=== PATIENT | male | born 1985 | race Two or more races ===

== ENCOUNTER 2016-04-25 09:37 | Inpatient (IN) | payer MEDICAID ==
[~2016-04-25] VITALS: Ht 177.8 cm; Wt 79.2 kg
[2016-04-25] MEDS ORDERED: SODIUM CHLORIDE 0.9% 1,000 ML IV ONE (10:45)
[2016-04-25] MEDS ORDERED: KETOROLAC TROMETH 30 MG/ML 1ML VIAL IV ONE (10:45)
[2016-04-25] MEDS ORDERED: VANCOMYCIN 1GM/250ML D5W 250 ML IV ONE (10:45)
[2016-04-25] MEDS ORDERED: PIPERACILLIN-TAZOB 3.375GM 100 ML IV ONE (10:45)
[2016-04-25] MEDS ORDERED: TETANUS-DIPTH-ACEL PERTUSSIS 0.5ML SYRG IM ONE (11:00)
[2016-04-25 11:29] LABS: Basophils # (auto) 0 uL; Basophils % (auto) 0.7 % (0.0-2.0); Eosinophils # (auto) 0.1 uL; Eosinophils % (auto) 1.6 % (0.0-7.0); Hematocrit 45.5 % (41.0-53.0); Hemoglobin 14.4 g/dL (13.5-17.5); Lymphocytes # (auto) 1.6 uL; Lymphocytes % (auto) 24.5 % (10.0-50.0); Mean Corpuscular Hemoglobin 29.5 pg (28.0-32.0); Mean Corpuscular Hgb Conc. 31.6 g/dL (32.0-36.0); Mean Corpuscular Volume 93.1 fL (80.0-100.0); Mean Platelet Volume 7.5 fL (7.4-10.4); Monocytes # (auto) 0.4 uL; Monocytes % (auto) 5.9 % (0.0-12.0); Neutrophils # (auto) 4.5 uL; Neutrophils % (auto) 67.3 % (37.0-80.0); Platelet Count (auto) 426 10^3/uL (140-450); Red Cell Distribution Width 13.8 % (11.6-16.0); White Blood Cell 6.7 10^3/uL (4.4-10.8)
[2016-04-25 11:40] LABS: Albumin 3.6 g/dL (3.4-5.0); Bilirubin, Total 0.1 mg/dL (0.2-1.0); Potassium 4.4 mmol/L (3.5-5.1); Total Protein 7.4 g/dL (6.4-8.2)
[2016-04-25] MEDS: PIPERACILLIN-TAZOB 3.375GM 100 ML IV SCH ×2 (13:22→19:47)
[2016-04-25] MEDS ORDERED: VANCOMYCIN PER PHARMACY 0 MG IV SCH (13:30)
[2016-04-25] MEDS ORDERED: TEMAZEPAM 15 MG CAP PO PRN (13:30)
[2016-04-25] MEDS ORDERED: ONDANSETRON HCL 4 MG/2 ML VIAL IV PRN (13:30)
[2016-04-25] MEDS ORDERED: ACETAMINOPHEN 325 MG TAB PO PRN (13:30)
[2016-04-25] MEDS ORDERED: DOCUSATE SOD 100 MG CAP PO PRN (13:30)
[2016-04-25] MEDS: ZINC SULFATE 220 MG CAP PO SCH (14:57)
[2016-04-25] MEDS: ASCORBIC ACID 500 MG TAB PO SCH ×2 (14:57→21:38)
[2016-04-25] MEDS: MULTIPLE VITAMIN TAB PO SCH (14:57)
[2016-04-25] MEDS: SODIUM CHLOR 0.9% PF (SALINE LOCK) 10ML VIAL IV SCH ×2 (14:57→21:37)
[2016-04-25] MEDS ORDERED: cloNIDine HCL 0.1 MG TAB PO PRN (15:30)
[2016-04-25 16:36] LABS: Urine RBC None Seen /hpf (0 - 3)
[2016-04-25 17:15] LABS: Urine Bilirubin Negative (Negative); Urine Blood Negative /uL (Negative); Urine Color Yellow (Yellow); Urine Glucose Normal (Normal); Urine Ketone Negative (Negative); Urine Nitrite Negative (Negative); Urine Urobilinogen Normal (Negative); Urine pH 6.5 (5.0-8.0)
[2016-04-25 17:17] VITALS: BP 123/63
[2016-04-25 17:53] VITALS: BP 160/83
[2016-04-25] MEDS: HYDROcodone-ACET 5/325MG TAB PO PRN (18:46)
[2016-04-25 20:00] VITALS: BP 119/69
[2016-04-25 21:28] VITALS: BP 119/69
[2016-04-25] MEDS: MORPHINE SULF INJ 2 MG/ML SYRINGE 1ML IV PRN (21:44)
[2016-04-25] MEDS: VANCOMYCIN 1,250 MG in D5W 5% 250 ML IV SCH (22:56)
[2016-04-26] MEDS: PIPERACILLIN-TAZOB 3.375GM 100 ML IV SCH ×4 (01:35→20:27)
[2016-04-26] MEDS: HYDROcodone-ACET 5/325MG TAB PO PRN ×2 (04:44→11:00)
[2016-04-26 05:03] VITALS: BP 109/74
[2016-04-26] MEDS: SODIUM CHLOR 0.9% PF (SALINE LOCK) 10ML VIAL IV SCH ×3 (05:35→22:53)
[2016-04-26 06:50] LABS: Basophils # (auto) 0.1 uL; Basophils % (auto) 0.8 % (0.0-2.0); Eosinophils # (auto) 0.2 uL; Eosinophils % (auto) 3.6 % (0.0-7.0); Hematocrit 43.5 % (41.0-53.0); Hemoglobin 13.6 g/dL (13.5-17.5); Lymphocytes % (auto) 31.7 % (10.0-50.0); Mean Corpuscular Hemoglobin 29.4 pg (28.0-32.0); Mean Corpuscular Hgb Conc. 31.3 g/dL (32.0-36.0); Mean Corpuscular Volume 93.9 fL (80.0-100.0); Mean Platelet Volume 7.6 fL (7.4-10.4); Monocytes # (auto) 0.5 uL; Monocytes % (auto) 8.7 % (0.0-12.0); Neutrophils # (auto) 3.4 uL; Neutrophils % (auto) 55.2 % (37.0-80.0); Platelet Count (auto) 372 10^3/uL (140-450); Red Cell Distribution Width 14.1 % (11.6-16.0); White Blood Cell 6.2 10^3/uL (4.4-10.8)
[2016-04-26 08:03] LABS: Albumin 3.1 g/dL (3.4-5.0); BUN/Creatinine Ratio 21.3; Bilirubin, Total 0.2 mg/dL (0.2-1.0); Calcium 8.3 mg/dL (8.5-10.1); Potassium 4.3 mmol/L (3.5-5.1); Total Protein 6.5 g/dL (6.4-8.2)
[2016-04-26] MEDS: ZINC SULFATE 220 MG CAP PO SCH (08:11)
[2016-04-26] MEDS: MULTIPLE VITAMIN TAB PO SCH (08:11)
[2016-04-26] MEDS: ASCORBIC ACID 500 MG TAB PO SCH ×2 (08:11→22:54)
[2016-04-26 08:30] VITALS: BP 123/68
[2016-04-26] MEDS: VANCOMYCIN 1,250 MG in D5W 5% 250 ML IV SCH ×2 (11:00→23:57)
[2016-04-26 13:00] VITALS: BP 132/62
[2016-04-26] MEDS: MORPHINE SULF INJ 2 MG/ML SYRINGE 1ML IV PRN ×2 (15:10→20:15)
[2016-04-26 16:47] VITALS: BP 112/66
[2016-04-26 20:00] VITALS: BP 116/75
[2016-04-26 21:53] VITALS: BP 116/75
[2016-04-27] MEDS: MORPHINE SULF INJ 2 MG/ML SYRINGE 1ML IV PRN ×3 (00:51→20:16)
[2016-04-27] MEDS: PIPERACILLIN-TAZOB 3.375GM 100 ML IV SCH ×2 (02:45→08:04)
[2016-04-27 04:51] VITALS: BP 114/69
[2016-04-27] MEDS: SODIUM CHLOR 0.9% PF (SALINE LOCK) 10ML VIAL IV SCH ×3 (06:27→22:04)
[2016-04-27] MEDS: HYDROcodone-ACET 5/325MG TAB PO PRN ×2 (08:12→15:09)
[2016-04-27] MEDS: ZINC SULFATE 220 MG CAP PO SCH (08:12)
[2016-04-27] MEDS: ASCORBIC ACID 500 MG TAB PO SCH ×2 (08:12→22:04)
[2016-04-27] MEDS: MULTIPLE VITAMIN TAB PO SCH (08:12)
[2016-04-27 08:52] VITALS: BP 109/73
[2016-04-27] MEDS: VANCOMYCIN 1,250 MG in D5W 5% 250 ML IV SCH (11:17)
[2016-04-27] MEDS ORDERED: LEVOFLOXACIN 500MG 100 ML IV ONE (11:45)
[2016-04-27 13:00] VITALS: BP 106/65
[2016-04-27] MEDS: CLINDAMYCIN 600MG IV 50 ML IV SCH ×2 (14:38→22:04)
[2016-04-27 17:00] VITALS: BP 112/71
[2016-04-27 20:00] VITALS: BP 132/73
[2016-04-27 21:45] VITALS: BP 132/73
[2016-04-28 05:09] VITALS: BP 119/76
[2016-04-28] MEDS: HYDROcodone-ACET 5/325MG TAB PO PRN (05:20)
[2016-04-28] MEDS: CLINDAMYCIN 600MG IV 50 ML IV SCH (05:21)
[2016-04-28] MEDS: SODIUM CHLOR 0.9% PF (SALINE LOCK) 10ML VIAL IV SCH (05:28)
[2016-04-28 06:34] LABS: Basophils # (auto) 0.1 uL; Eosinophils # (auto) 0.3 uL; Eosinophils % (auto) 4.7 % (0.0-7.0); Hematocrit 42.3 % (41.0-53.0); Hemoglobin 13.3 g/dL (13.5-17.5); Lymphocytes # (auto) 2.2 uL; Mean Corpuscular Hemoglobin 29.1 pg (28.0-32.0); Mean Corpuscular Hgb Conc. 31.5 g/dL (32.0-36.0); Mean Corpuscular Volume 92.2 fL (80.0-100.0); Mean Platelet Volume 7.3 fL (7.4-10.4); Monocytes # (auto) 0.6 uL; Monocytes % (auto) 9.6 % (0.0-12.0); Neutrophils # (auto) 2.8 uL; Neutrophils % (auto) 47.7 % (37.0-80.0); Platelet Count (auto) 344 10^3/uL (140-450); Red Cell Distribution Width 13.9 % (11.6-16.0); White Blood Cell 5.9 10^3/uL (4.4-10.8)
[2016-04-28 06:49] LABS: Albumin 3.3 g/dL (3.4-5.0); BUN/Creatinine Ratio 21.6; Bilirubin, Total 0.2 mg/dL (0.2-1.0); Calcium 8.4 mg/dL (8.5-10.1); Potassium 4.2 mmol/L (3.5-5.1); Total Protein 6.6 g/dL (6.4-8.2)
[2016-04-28 09:00] VITALS: BP 114/63
[2016-04-28] MEDS ORDERED: LEVOFLOXACIN 500MG 100 ML IV SCH (10:00)
[2016-04-28] MEDS: ZINC SULFATE 220 MG CAP PO SCH (10:02)
[2016-04-28] MEDS: ASCORBIC ACID 500 MG TAB PO SCH (10:02)
[2016-04-28] MEDS: MULTIPLE VITAMIN TAB PO SCH (10:02)
== END 2016-04-28 11:10 | disposition home or self-care (01) | DRG 383 ==
LOC: ER 09:38 → OVERFLOW 09:39 → EAST 17:49
PROVIDERS: ADMIT Internal Medicine; ATTEND Internal Medicine
DX: L03.115 Cellulitis of right lower limb (principal); I10 Essential (primary) hypertension; B95.8 Unspecified staphylococcus as the cause of diseases classified elsewhere; J45.909 Unspecified asthma, uncomplicated; F17.210 Nicotine dependence, cigarettes, uncomplicated; W54.0XXA Bitten by dog, initial encounter; Z83.3 Family history of diabetes mellitus; Z23 Encounter for immunization
CPT/HCPCS: 36415; 80053; 80202; 81001; 85025; 87040; 87077; 87186; 87205; 90471; 90715; 93971; 96365; 96366; 96375; G0434; J1885; J1956; J2543; J3490; J7060

== ENCOUNTER 2016-05-24 03:00 | Emergency (ER) | payer MEDICAID ==
[~2016-05-24] VITALS: Ht 177.8 cm; Wt 77.1 kg
[2016-05-24 05:00] LABS: Basophils # (auto) 0 uL; Basophils % (auto) 0.4 % (0.0-2.0); Eosinophils # (auto) 0.2 uL; Hematocrit 42.9 % (41.0-53.0); Hemoglobin 14.2 g/dL (13.5-17.5); Lymphocytes # (auto) 2.2 uL; Lymphocytes % (auto) 26.2 % (10.0-50.0); Mean Corpuscular Hemoglobin 30.4 pg (28.0-32.0); Mean Corpuscular Hgb Conc. 33.1 g/dL (32.0-36.0); Mean Corpuscular Volume 91.8 fL (80.0-100.0); Mean Platelet Volume 7.8 fL (7.4-10.4); Monocytes # (auto) 0.6 uL; Monocytes % (auto) 7.3 % (0.0-12.0); Neutrophils # (auto) 5.4 uL; Neutrophils % (auto) 64.1 % (37.0-80.0); Platelet Count (auto) 306 10^3/uL (140-450); Red Cell Distribution Width 13.3 % (11.6-16.0); White Blood Cell 8.4 10^3/uL (4.4-10.8)
[2016-05-24 05:22] LABS: Urine Bilirubin Negative (Negative); Urine Blood Negative /uL (Negative); Urine Color Yellow (Yellow); Urine Glucose Normal (Normal); Urine Ketone Negative (Negative); Urine Mucus FEW (None Seen); Urine Nitrite Negative (Negative); Urine RBC 1 /hpf (0 - 3); Urine Sperm PRESENT /hpf (None Seen); Urine Urobilinogen Normal (Negative); Urine pH 5.5 (5.0-8.0)
[2016-05-24 05:27] LABS: Albumin 3.5 g/dL (3.4-5.0); BUN/Creatinine Ratio 14.8; Bilirubin, Total 0.3 mg/dL (0.2-1.0); Calcium 8.4 mg/dL (8.5-10.1); Potassium 3.6 mmol/L (3.5-5.1)
[2016-05-24 12:10] VITALS: BP 119/77
[2016-05-24] MEDS ORDERED: NEOMYCIN-BACITRACIN-POLYM UNITDOSE PKG TOP OINT TOP ONE ×2 (12:12→13:00)
[2016-05-24] MEDS ORDERED: METOCLOPRAMIDE HCL 5MG/ml INJ 2ml VIAL IV ONE (12:45)
[2016-05-24] MEDS ORDERED: KETOROLAC TROMETH 30 MG/ML 1ML VIAL IV ONE (12:45)
== END 2016-05-24 14:00 | disposition home or self-care (01) ==
LOC: ER 03:02
DX: S22.31XA Fracture of one rib, right side, initial encounter for closed fracture (principal); T81.89XA Other complications of procedures, not elsewhere classified, initial encounter; M54.9 Dorsalgia, unspecified; V19.9XXA Pedal cyclist (driver) (passenger) injured in unspecified traffic accident, initial encounter; Y93.9 Activity, unspecified; Y99.8 Other external cause status; Y92.89 Other specified places as the place of occurrence of the external cause; F12.10 Cannabis abuse, uncomplicated; F15.10 Other stimulant abuse, uncomplicated; F17.210 Nicotine dependence, cigarettes, uncomplicated
CPT/HCPCS: 36415; 71020; 71101; 80053; 81001; 85025; 96374; 96375; 99285; G0434; J1885; J2765

== ENCOUNTER 2018-01-05 03:57 | Emergency (ER) | payer MEDICAID ==
[~2018-01-05] VITALS: Ht 177.8 cm; Wt 90.7 kg
[2018-01-05] MEDS ORDERED: LIDOCAINE W/ EPINEPHRINE 2% INJ 20ML VIAL IJ ONE (07:30)
[2018-01-05] MEDS ORDERED: BACITRACIN TOP OINT 1 UD PKG TOP ONE (07:30)
[2018-01-05 08:07] VITALS: BP 126/82
== END 2018-01-05 08:07 | disposition home or self-care (01) ==
LOC: ER 03:57
DX: S01.111A Laceration without foreign body of right eyelid and periocular area, initial encounter (principal); S09.90XA Unspecified injury of head, initial encounter; F17.210 Nicotine dependence, cigarettes, uncomplicated; F12.90 Cannabis use, unspecified, uncomplicated; Z88.8 Allergy status to other drugs, medicaments and biological substances; W22.8XXA Striking against or struck by other objects, initial encounter; Y93.89 Activity, other specified; Y99.8 Other external cause status; Y92.89 Other specified places as the place of occurrence of the external cause
CPT/HCPCS: 12051; 70450

== ENCOUNTER 2018-01-12 16:37 | Emergency (ER) | payer MEDICAID ==
[~2018-01-12] VITALS: Ht 177.8 cm; Wt 90.7 kg
[2018-01-12 16:43] VITALS: BP 124/82
== END 2018-01-12 17:38 | disposition home or self-care (01) ==
LOC: ER 16:43
DX: S01.111D Laceration without foreign body of right eyelid and periocular area, subsequent encounter (principal); F17.210 Nicotine dependence, cigarettes, uncomplicated; F15.90 Other stimulant use, unspecified, uncomplicated; Z48.02 Encounter for removal of sutures; X58.XXXD Exposure to other specified factors, subsequent encounter

== ENCOUNTER 2018-04-20 08:57 | Emergency (ER) | payer MEDICAID ==
[~2018-04-20] VITALS: Ht 177.8 cm; Wt 95.3 kg
[2018-04-20 09:30] VITALS: BP 124/87
[2018-04-20] MEDS ORDERED: IBUPROFEN 800 MG TAB PO ONE (09:45)
== END 2018-04-20 09:59 | disposition home or self-care (01) ==
LOC: ER 08:57
DX: S93.401A Sprain of unspecified ligament of right ankle, initial encounter (principal); S50.812A Abrasion of left forearm, initial encounter; F17.210 Nicotine dependence, cigarettes, uncomplicated; F12.10 Cannabis abuse, uncomplicated; W18.39XA Other fall on same level, initial encounter; Y93.01 Activity, walking, marching and hiking; Y92.89 Other specified places as the place of occurrence of the external cause; Y99.8 Other external cause status
CPT/HCPCS: 73610

== ENCOUNTER 2019-02-24 18:56 | Emergency (ER) | payer MEDICAID ==
[~2019-02-24] VITALS: Ht 177.8 cm; Wt 79.4 kg
[2019-02-24] MEDS ORDERED: ACETAMINOPHEN 500 MG TAB PO ONE ×2 (19:45)
[2019-02-24 19:47] VITALS: BP 113/73
[2019-02-24] MEDS ORDERED: IBUPROFEN 800 MG TAB PO ONE (20:45)
== END 2019-02-24 22:53 | disposition home or self-care (01) ==
LOC: ER 18:57
DX: S52.202A Unspecified fracture of shaft of left ulna, initial encounter for closed fracture (principal); L03.114 Cellulitis of left upper limb; F17.210 Nicotine dependence, cigarettes, uncomplicated; Z88.8 Allergy status to other drugs, medicaments and biological substances; Y00.XXXA Assault by blunt object, initial encounter; Y93.89 Activity, other specified; Y92.89 Other specified places as the place of occurrence of the external cause; Y99.8 Other external cause status
CPT/HCPCS: 29125; 73080; 73090; 73110; 73200

== ENCOUNTER 2019-03-05 13:09 | Emergency (ER) | payer MEDICAID ==
[~2019-03-05] VITALS: Ht 177.8 cm; Wt 40.4 kg
[2019-03-05 13:19] VITALS: BP 126/81
[2019-03-05] MEDS ORDERED: KETOROLAC TROMETH 60MG/2ML VIAL IM ONE (14:30)
== END 2019-03-05 14:54 | disposition home or self-care (01) ==
LOC: ER 13:09
DX: S52.292A Other fracture of shaft of left ulna, initial encounter for closed fracture (principal); F17.210 Nicotine dependence, cigarettes, uncomplicated; Z88.6 Allergy status to analgesic agent; X58.XXXA Exposure to other specified factors, initial encounter; Y93.89 Activity, other specified; Y92.89 Other specified places as the place of occurrence of the external cause; Y99.8 Other external cause status
CPT/HCPCS: 29125; 96372; 99283; J1885

== ENCOUNTER 2019-03-14 19:46 | Emergency (ER) | payer MEDICAID ==
[~2019-03-14] VITALS: Ht 177.8 cm; Wt 79.4 kg
[2019-03-15] MEDS ORDERED: cefTRIAXone SOD 1,000 MG VL IM ONE (01:15)
[2019-03-15] MEDS ORDERED: DexAMETHasone SOD PHOS 10MG/1ML VIAL INJ IM ONE (01:15)
[2019-03-15 01:18] VITALS: BP 111/81
[2019-03-15 01:18] LABS: Basophils # (auto) 0 uL; Basophils % (auto) 0.7 % (0.0-2.0); Eosinophils # (auto) 0 uL; Eosinophils % (auto) 0.4 % (0.0-7.0); Hematocrit 44.1 % (41.0-53.0); Hemoglobin 15.1 g/dL (13.5-17.5); Lymphocytes # (auto) 1.3 uL; Mean Corpuscular Hemoglobin 31.7 pg (28.0-32.0); Mean Corpuscular Hgb Conc. 34.3 g/dL (32.0-36.0); Mean Corpuscular Volume 92.6 fL (80.0-100.0); Monocytes # (auto) 0.6 uL; Monocytes % (auto) 9.7 % (0.0-12.0); Neutrophils # (auto) 4.1 uL; Neutrophils % (auto) 68.2 % (37.0-80.0); Nucleated Red Blood Cells % 0.1 %; Platelet Count (auto) 204 10^3/uL (140-450); Red Blood Cells 4.77 10^6/uL (4.5-5.90); Red Cell Distribution Width 14.3 % (11.8-14.3); White Blood Cell 5.9 10^3/uL (4.4-10.8)
[2019-03-15 01:35] LABS: Albumin 3.7 g/dL (3.4-5.0); BUN/Creatinine Ratio 14.1; Calcium 8.6 mg/dL (8.5-10.1); Potassium 4.1 mmol/L (3.5-5.1)
[2019-03-15 01:38] LABS: Bilirubin, Total 0.2 mg/dL (0.2-1.0); Total Protein 7.5 g/dL (6.4-8.2)
== END 2019-03-15 02:18 | disposition home or self-care (01) ==
LOC: ER 19:52
DX: J16.8 Pneumonia due to other specified infectious organisms (principal); F17.210 Nicotine dependence, cigarettes, uncomplicated
CPT/HCPCS: 36415; 71045; 80053; 85025; 96372; 99284; J0696; J1100

== ENCOUNTER 2019-03-25 18:27 | Emergency (ER) | payer MEDICAID ==
[~2019-03-25] VITALS: Ht 177.8 cm; Wt 81.6 kg
[2019-03-25 19:48] LABS: Hematocrit 46.2 % (41.0-53.0); Hemoglobin 15.6 g/dL (13.5-17.5); Mean Corpuscular Hemoglobin 31.2 pg (28.0-32.0); Mean Corpuscular Hgb Conc. 33.7 g/dL (32.0-36.0); Mean Corpuscular Volume 92.7 fL (80.0-100.0); Platelet Count (auto) 299 10^3/uL (140-450); Red Blood Cells 4.99 10^6/uL (4.5-5.90); Red Cell Distribution Width 14.3 % (11.8-14.3); White Blood Cell 7.8 10^3/uL (4.4-10.8)
[2019-03-25 19:51] LABS: Band Neutrophils % (manual) 0; Basophils % (manual) 0 (0.0-2.0); Blast Cells 0; Myelocytes % 0; Promyelocytes % 0; Reactive Lymphocytes 0
[2019-03-25 20:07] LABS: Albumin 3.9 g/dL (3.4-5.0); Anion Gap 7 (5-15); Blood Urea Nitrogen 16 mg/dL (7-18); Calcium 8.9 mg/dL (8.5-10.1); Carbon Dioxide 25 mmol/L (21-32); Chloride 110 mmol/L (98-107); Glucose 85 mg/dL (74-106); Potassium 3.6 mmol/L (3.5-5.1); Sodium 142 mmol/L (136-145)
[2019-03-25 20:08] LABS: Eosinophils % (manual) 3 (0-7); Lymphocytes % (manual) 49 (10.0-50.0); Metamyelocytes % 2; Monocytes % (manual) 6 (0-12)
[2019-03-25 20:19] LABS: Alanine Aminotransferase 23 U/L (16-61); Alkaline Phosphatase 102 U/L (45-117); Aspartate Aminotransferase 14 U/L (15-37); BUN/Creatinine Ratio 18.6; Bilirubin, Total 0.2 mg/dL (0.2-1.0); GFR African American 131 mL/min; GFR Non-African American 108 mL/min; Total Protein 7.9 g/dL (6.4-8.2)
[2019-03-25 22:09] VITALS: BP 126/84
== END 2019-03-25 22:19 | disposition home or self-care (01) ==
LOC: ER 18:27
DX: J40 Bronchitis, not specified as acute or chronic (principal); Z88.8 Allergy status to other drugs, medicaments and biological substances
CPT/HCPCS: 36415; 71046; 80053; 84484; 85007; 85027; 93005

== ENCOUNTER 2019-06-03 16:54 | Emergency (ER) | payer MEDICAID ==
[~2019-06-03] VITALS: Ht 177.8 cm; Wt 78.0 kg
[2019-06-03] MEDS ORDERED: cefTRIAXone SODIUM 250 MG VL IM ONE (17:30)
[2019-06-03] MEDS ORDERED: AZITHROMYCIN 250 MG TAB PO ONE (17:30)
[2019-06-03 17:53] LABS: Urine Bacteria NONE SEEN /hpf (None Seen); Urine Blood Negative /uL (Negative); Urine Budding Yeast MODERATE /hpf (None Seen); Urine Specific Gravity 1.013 (1.001-1.035); Urine WBC 129 /hpf (0 - 3)
[2019-06-03 17:57] LABS: Alcohol, Urine < 3.0 mg/dL (0-5); Amphetamine Screen, Urine POSITIVE (NEGATIVE); Barbiturate Scree,Urine NEGATIVE (NEGATIVE); Benzodiazephine Screen, Urine NEGATIVE (NEGATIVE); Cannabinoid Screen, Urine POSITIVE (NEGATIVE); Cocaine Screen, Urine NEGATIVE (NEGATIVE); Opiate Scree,Urine NEGATIVE (NEGATIVE); Phencyclidine Screen, Urine NEGATIVE (NEGATIVE)
[2019-06-03 18:18] VITALS: BP 147/83
== END 2019-06-03 18:57 | disposition home or self-care (01) ==
LOC: ER 16:54
DX: Z20.2 Contact with and (suspected) exposure to infections with a predominantly sexual mode of transmission (principal); R36.9 Urethral discharge, unspecified; Z88.8 Allergy status to other drugs, medicaments and biological substances
CPT/HCPCS: 80307; 81001; 96372; 99283; J0696

== ENCOUNTER 2020-01-10 14:26 | Emergency (ER) | payer MEDICAID ==
[~2020-01-10] VITALS: Ht 175.3 cm; Wt 74.8 kg
[2020-01-10 15:08] VITALS: BP 123/92
== END 2020-01-10 16:54 | disposition home or self-care (01) ==
LOC: ER 14:26
DX: S61.011A Laceration without foreign body of right thumb without damage to nail, initial encounter (principal); W26.0XXA Contact with knife, initial encounter; Y93.89 Activity, other specified; Y92.89 Other specified places as the place of occurrence of the external cause; Y99.8 Other external cause status
CPT/HCPCS: 12001; 73140; 99283; J2001

== ENCOUNTER 2020-01-20 17:01 | Emergency (ER) | payer MEDICAID ==
[~2020-01-20] VITALS: Ht 175.3 cm; Wt 74.8 kg
[2020-01-20 19:01] VITALS: BP 141/95
[2020-01-20] MEDS ORDERED: cefTRIAXone SOD 1,000 MG VL IM ONE (19:30)
[2020-01-20] MEDS ORDERED: KETOROLAC TROMETH 60MG/2ML VIAL IM ONE (19:30)
== END 2020-01-20 20:14 | disposition home or self-care (01) ==
LOC: ER 17:01
DX: S61.411A Laceration without foreign body of right hand, initial encounter (principal); M79.89 Other specified soft tissue disorders; T81.30XA Disruption of wound, unspecified, initial encounter; F17.210 Nicotine dependence, cigarettes, uncomplicated; W45.8XXA Other foreign body or object entering through skin, initial encounter; Y93.89 Activity, other specified; Y92.89 Other specified places as the place of occurrence of the external cause; Y99.8 Other external cause status
CPT/HCPCS: 96372; 99284; J0696; J1885

== ENCOUNTER 2020-03-25 10:28 | Emergency (ER) | payer MEDICAID ==
[~2020-03-25] VITALS: Ht 175.3 cm; Wt 77.1 kg
[2020-03-25 10:40] VITALS: BP 132/85
[2020-03-25] MEDS ORDERED: LIDOCAINE 1% HCL (LOCAL ANESTH.) INJ 20ML MDV IJ ONE (11:15)
[2020-03-25] MEDS ORDERED: TETANUS-DIPTH-ACEL PERTUSSIS 0.5ML SYR Tdap IM ONE (11:30)
[2020-03-25] MEDS ORDERED: IBUPROFEN 800 MG TAB PO ONE (11:30)
== END 2020-03-25 11:51 | disposition home or self-care (01) ==
LOC: ER 10:28
DX: S01.81XA Laceration without foreign body of other part of head, initial encounter (principal); S16.1XXA Strain of muscle, fascia and tendon at neck level, initial encounter; S06.9X9A Unspecified intracranial injury with loss of consciousness of unspecified duration, initial encounter; F17.210 Nicotine dependence, cigarettes, uncomplicated; W18.39XA Other fall on same level, initial encounter; Y93.89 Activity, other specified; Y92.89 Other specified places as the place of occurrence of the external cause; Y99.8 Other external cause status
CPT/HCPCS: 12013; 70450; 70486; 72125; 73130; 90471; 90715; 99285; J2001

== ENCOUNTER 2020-05-07 12:32 | Emergency (ER) | payer MEDICAID ==
[~2020-05-07] VITALS: Ht 175.3 cm; Wt 77.1 kg
[2020-05-07 12:36] VITALS: BP 125/78
== END 2020-05-07 14:09 | disposition home or self-care (01) ==
LOC: ER 12:32
DX: S61.233A Puncture wound without foreign body of left middle finger without damage to nail, initial encounter (principal); F17.210 Nicotine dependence, cigarettes, uncomplicated; F12.10 Cannabis abuse, uncomplicated; F15.10 Other stimulant abuse, uncomplicated; X58.XXXA Exposure to other specified factors, initial encounter; Y93.89 Activity, other specified; Y92.89 Other specified places as the place of occurrence of the external cause; Y99.8 Other external cause status

== ENCOUNTER 2020-05-16 09:52 | Emergency (ER) | payer MEDICAID ==
[~2020-05-16] VITALS: Ht 175.3 cm; Wt 77.1 kg
[2020-05-16 10:15] VITALS: BP 125/87
== END 2020-05-16 10:46 | disposition home or self-care (01) ==
LOC: ER 09:52
DX: R23.4 Changes in skin texture (principal); F17.210 Nicotine dependence, cigarettes, uncomplicated; F12.10 Cannabis abuse, uncomplicated; F15.10 Other stimulant abuse, uncomplicated; Z76.0 Encounter for issue of repeat prescription

== ENCOUNTER 2020-08-27 19:03 | Emergency (ER) | payer MEDICAID ==
[~2020-08-27] VITALS: Ht 175.3 cm; Wt 81.6 kg
[2020-08-27] MEDS ORDERED: LIDOCAINE 2% (LOCAL ANESTH.) PF 5ml SDV ONE (20:16)
[2020-08-27] MEDS ORDERED: LIDOCAINE HCL 2 % INJ 2ML MPF IJ ONE (20:30)
[2020-08-27] MEDS ORDERED: NEOMYCIN-BACITRACIN-POLYM UNITDOSE PKG TOP OINT TOP ONE (21:00)
[2020-08-27] MEDS ORDERED: BACITRACIN-POLYMYXIN B TOPICAL OINT UD TOP ONE (21:00)
[2020-08-27 21:50] VITALS: BP 128/80
== END 2020-08-27 21:53 | disposition home or self-care (01) ==
LOC: ER 19:03
DX: S61.210A Laceration without foreign body of right index finger without damage to nail, initial encounter (principal); F17.210 Nicotine dependence, cigarettes, uncomplicated; Z88.8 Allergy status to other drugs, medicaments and biological substances; W26.8XXA Contact with other sharp object(s), not elsewhere classified, initial encounter; Y93.89 Activity, other specified; Y92.89 Other specified places as the place of occurrence of the external cause; Y99.8 Other external cause status
CPT/HCPCS: 12001; 73130; 99283; J2001

== ENCOUNTER 2020-09-01 15:14 | Emergency (ER) | payer MEDICAID ==
[~2020-09-01] VITALS: Ht 175.3 cm; Wt 81.6 kg
[2020-09-01 17:33] VITALS: BP 141/92
== END 2020-09-01 18:07 | disposition home or self-care (01) ==
LOC: ER 15:14
DX: S61.210D Laceration without foreign body of right index finger without damage to nail, subsequent encounter (principal); F17.210 Nicotine dependence, cigarettes, uncomplicated; Z88.8 Allergy status to other drugs, medicaments and biological substances; X58.XXXD Exposure to other specified factors, subsequent encounter

== ENCOUNTER 2021-01-15 20:11 | Emergency (ER) | payer MEDICAID ==
[~2021-01-15] VITALS: Ht 175.3 cm; Wt 86.2 kg
[2021-01-15 21:00] VITALS: BP 124/82
[2021-01-15] MEDS ORDERED: TETANUS-DIPTH-ACEL PERTUSSIS 0.5ML SYR Tdap IM ONE (21:30)
[2021-01-15] MEDS ORDERED: AMOXICILLIN/CLAVUL 875 MG TAB PO ONE (22:15)
== END 2021-01-15 22:22 | disposition home or self-care (01) ==
LOC: ER 20:11
DX: S71.131A Puncture wound without foreign body, right thigh, initial encounter (principal); S71.151A Open bite, right thigh, initial encounter; F17.210 Nicotine dependence, cigarettes, uncomplicated; Z59.00 Homelessness unspecified; Z88.8 Allergy status to other drugs, medicaments and biological substances; W54.0XXA Bitten by dog, initial encounter; Y93.89 Activity, other specified; Y92.89 Other specified places as the place of occurrence of the external cause; Y99.8 Other external cause status
CPT/HCPCS: 90471; 90715

== ENCOUNTER 2021-02-06 16:57 | Emergency (ER) | payer MEDICAID ==
[~2021-02-06] VITALS: Ht 175.3 cm; Wt 79.4 kg
[2021-02-06] MEDS ORDERED: ASPirin 81 mg TAB PO ONE (17:00)
[2021-02-06 18:34] LABS: Basophils # (auto) 0 10 ^3/uL (0-0.2); Basophils % (auto) 0.5 % (0.0-2.0); Eosinophils # (auto) 0.1 10 ^3/uL (0-0.8); Eosinophils % (auto) 1.2 % (0.0-7.0); Hematocrit 44.7 % (41.0-53.0); Hemoglobin 15.1 g/dL (13.5-17.5); Lymphocytes # (auto) 2.2 10 ^3/uL (0.4-5.4); Lymphocytes % (auto) 28.4 % (10.0-50.0); Mean Corpuscular Hemoglobin 30.4 pg (28.0-32.0); Mean Corpuscular Hgb Conc. 33.8 g/dL (32.0-36.0); Monocytes # (auto) 0.6 10 ^3/uL (0-1.3); Monocytes % (auto) 7.7 % (0.0-12.0); Neutrophils # (auto) 4.8 10 ^3/uL (1.6-8.6); Neutrophils % (auto) 62.2 % (37.0-80.0); Nucleated Red Blood Cells % 0.1 %; Red Blood Cells 4.97 10^6/uL (4.5-5.90); Red Cell Distribution Width 14.1 % (11.8-14.3); White Blood Cell 7.6 10^3/uL (4.4-10.8)
[2021-02-06 18:52] LABS: Albumin 3.5 g/dL (3.4-5.0); Calcium 8.5 mg/dL (8.5-10.1); Potassium 4.1 mmol/L (3.5-5.1)
[2021-02-06 18:56] LABS: BUN/Creatinine Ratio 20.4; Bilirubin, Total 0.1 mg/dL (0.2-1.0); Total Protein 7.4 g/dL (6.4-8.2)
[2021-02-06 19:45] VITALS: BP 123/80
== END 2021-02-06 20:15 | disposition home or self-care (01) ==
LOC: ER 16:57
DX: J18.9 Pneumonia, unspecified organism (principal); R07.89 Other chest pain; F17.210 Nicotine dependence, cigarettes, uncomplicated; Z88.8 Allergy status to other drugs, medicaments and biological substances; Z59.00 Homelessness unspecified
CPT/HCPCS: 36415; 71045; 80053; 84443; 84484; 85025; 93005

== ENCOUNTER → 2021-09-29 22:03 | Emergency (ER) | payer MEDICAID ==
[~2021-09-29 22:03] MED LIST: CLIN-203 PO; PERCOT PO
== END | disposition left against medical advice (07) ==
LOC: ER 22:03
DX: M79.671 Pain in right foot (principal); Z53.21 Procedure and treatment not carried out due to patient leaving prior to being seen by health care provider

== ENCOUNTER 2021-10-04 20:26 | Emergency (ER) | payer MEDICAID ==
[~2021-10-04] VITALS: Ht 177.8 cm; Wt 82.0 kg
[2021-10-04 20:40] VITALS: BP 117/68
[2021-10-05] MEDS ORDERED: PERCOT PO (01:20)
[2021-10-05] MEDS ORDERED: CLIN-203 PO (01:20)
== END 2021-10-05 02:36 | disposition home or self-care (01) ==
LOC: EDBD 20:26 → ER 20:26
DX: L03.114 Cellulitis of left upper limb (principal); J45.909 Unspecified asthma, uncomplicated; F17.210 Nicotine dependence, cigarettes, uncomplicated; Z88.8 Allergy status to other drugs, medicaments and biological substances
CPT/HCPCS: 73080

== ENCOUNTER 2024-04-25 21:06 | Emergency (ER) | payer MEDICAID ==
[~2024-04-25] VITALS: Ht 172.7 cm; Wt 77.1 kg
--- NOTE | 2024-04-25 22:01 | ED.PDOC ---
History of Present Illness HPI Comments 39 y/o M is BIBA for c/o blood in his urine and concerns of rectal bleeding today. Patient is a poor historian and endorses on noticing blood emanating from his rectum and urine earlier today. He admits to recent alcohol intake, yesterday, and methamphetamine use, today, and comments on "something else" bein g his "whisky" he drank then. He denies having any abdominal pain, nausea, vomiting, weakness, or other associated symptoms or modifiers at this time. Chief Complaint: GI Bleed Time Seen by MD: 21:30 Primary Care Provider: LISANDRA Reviewed Notes: Nurses Notes, Medications, Allergies Allergies: Coded Allergies: Tramadol (Verified Adverse Reaction, Unknown, 08/27/20) PSYCHOSIS Home Meds Active Scripts Oxycodone W/ Acetaminophen (Percocet 5/325MG) 1 Tab Tb, 1 TAB PO BID for 7 Days, #14 TAB Prov:KRISTOFER FLORES MD 10/05/21 Clindamycin HCl (Clindamycin Hydrochloride) 300 Mg Cap, 300 MG PO BID for 7 Days, #14 CAP Prov:KRISTOFER FLORES MD 10/05/21 Information Source: Patient Mode of Arrival: EMS Severity: Moderate Timing: Hours Duration: Since onset Prehospital treatment: None Past Medical History PAST MEDICAL HISTORY: Asthma Surgical History: Denies all surgeries Family History Family History: Reviewed,noncontributory to illness Social History Smoker: Cigarettes, Less Than 1 Pack/Day Alcohol: Occasionally Drugs: Marijuana, Methamphetamine Lives In: Homeless Constitutional: denies: chills, diaphoresis, fatigue, fever, malaise, sweats, weakness, others EENTM: denies: blurred vision, double vision, ear bleeding, ear discharge, ear drainage, ear pain, ear ringing, eye pain, eye redness, hearing loss, mouth pain, mouth swelling, nasal discharge, nose bleeding, nose congestion, nose pain , photophobia, tearing, throat pain, throat swelling, voice changes, others Respiratory: denies: cough, hemoptysis, orthopnea, SOB at rest, shortness of breath, SOB with excertion, stridor, wheezing, others Cardiovascular: denies: chest pain, dizzy spells, diaphoresis, Dyspnea on exertion, edema, irregular heart beat, left arm pain, lightheadedness, palpitations, PND, syncope, others Gastrointestinal: reports: rectal bleeding; denies: abdomen distended, abdominal pain, blood streaked bowels, constipated, diarrhea, dysphagia, difficulty swallowing, hematemesis, melena, nausea, poor appetite, poor fluid intake, rectal pain, vomiting, others Genitourinary: reports: hematuria; denies: burning, dysuria, flank pain, frequency, incontinence, penile discharge, penile sore, pain, testicle pain, testicle swelling, urgency, others Neurological: denies: dizziness, fainting, headache, left sided numbness, left sided weakness, numbness, paresthesia, pre-existing deficit, right sided numbness, right sided weakness, seizure, speech problems, tingling, tremors, weakness, others Musculoskeletal: denies: back pain, gout, joint pain, joint swelling, muscle pain, muscle stiffness, neck pain, others Integumetry: denies: bruises, change in color, change in hair/nails, dryness, laceration, lesions, lumps, rash, wounds, others Allergic/Immunocompromised: denies: Difficulty Healing, Frequent Infections, Hives, Itching, others Hematologic/Lymphatic: denies: anemia, blood clots, easy bleeding, easy bruising, swollen glands, others Endocrine: denies: excessive hunger, excessive sweating, excessive thirst, excessive urination, flushing, intolerance to cold, intolerance to heat, unexplained weight gain, unexplained weight loss, others Psychiatric: denies: anxiety, bipolar disorder, depression, hopeless, panic disorder, schizophrenia, sleepless, suicidal, others All Other Systems: Reviewed and Negative (negative unless otherwise stated above or in HPI) Physical Exam General Appearance: Moderate Distress (Patient was anxious and appears to be under the influence of an illicit drug at time of evaluation.), Normal HEENT: Normal ENT Inspection, Pharynx Normal, TMs Normal Neck: Full Range of Motion, Non-Tender, Normal, Normal Inspection Respiratory: Chest Non-Tender, Lungs Clear, No Accessory Muscle Use, No Respiratory Distress, Normal Breath Sounds Cardiovascular: No Edema, No JVD, No Murmur, No Gallop, Normal Peripheral Pulses, Regular Rate/Rhythm Breast Exam: Deferred Gastrointestinal: No Organomegaly, Non Tender, No Pulsatile Mass, Normal Bowel Sounds, Soft Genitalia: Deferred Pelvic: Deferred Rectal: Deferred Extremities: No calf tenderness, Normal capillary refill, Normal inspection, Normal range of motion, Non-tender, No pedal edema Neurologic: Alert, 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 Was a procedure done?: No Differential Dx Considerations may include: polysubstance abuse, hemorrhoids, anemia, sepsis, electrolyte abnormality, UTI X-Ray, Labs, Meds, VS Vital Signs Date Time Temp Pulse Resp B/P (MAP) Pulse Ox O2 Delivery O2 Flow Rate FiO2 04/25/24 22:17 98.0 84 18 139/76 (97) 99 98.0 04/25/24 22:17 84 18 99 Room Air* 0 21 04/25/24 21:16 98.0 107 22 174/91 (118) 94 Lab Test 04/25/24 23:08 04/25/24 23:07 04/25/24 21:59 Range/Units Urine Color Yellow Yellow Urine Clarity Clear Clear Urine pH 6.0 5.0-9.0 Urine Specific [place] 1.029 1.001-1.035 Urine Protein Trace H Negative Urine Ketones 2+ H Negative Urine Blood Negative Negative /uL Urine Nitrite Negative Negative Urine Bilirubin Negative Negative Urine Urobilinogen Normal Negative mg/dL Urine Leukocyte Esterase Negative Negative /uL Urine RBC <1 0 - 3 /hpf Urine Microscopic WBC 1 0-3 /HPF Urine Squamous Epithelial Cells None seen <5 /hpf Urine Bacteria None seen None Seen /hpf Urine Mucus Few None Seen Urine Sperm Present None Seen /hpf Urine Glucose Normal Normal mg/dL Urine Opiates Screen Neg NEGATIVE Urine Fentanyl Screen Neg NEGATIVE Urine Barbiturates Screen Neg NEGATIVE Urine Phencyclidine Screen Neg NEGATIVE Urine Amphetamines Screen Pos NEGATIVE Urine Benzodiazepines Screen Neg NEGATIVE Urine Cocaine Screen Neg NEGATIVE Urine Cannabinoids Screen Pos NEGATIVE White Blood Count 11.9 H 4.4-10.8 10^3/uL Red Blood Count 4.78 4.5-5.90 10^6/uL Hemoglobin 14.4 13.5-17.5 g/dL Hematocrit 42.7 41.0-53.0 % Mean Corpuscular Volume 89.3 80.0-100.0 fL Mean Corpuscular Hemoglobin 30.2 28.0-32.0 pg Mean Corpuscular Hemoglobin Concent 33.8 32.0-36.0 g/dL Red Cell Distribution Width 13.6 11.8-14.3 % Platelet Count 230 140-450 10^3/uL Mean Platelet Volume 8.1 6.9-10.8 fL Neutrophils (%) (Auto) 73.8 37.0-80.0 % Lymphocytes (%) (Auto) 17.1 10.0-50.0 % Monocytes (%) (Auto) 8.3 0.0-12.0 % Eosinophils (%) (Auto) 0.5 0.0-7.0 % Basophils (%) (Auto) 0.3 0.0-2.0 % Neutrophils # (Auto) 8.8 H 1.6-8.6 10 ^3/uL Lymphocytes # (Auto) 2.0 0.4-5.4 10 ^3/uL Monocytes # (Auto) 1.0 0-1.3 10 ^3/uL Eosinophils # (Auto) 0.1 0-0.8 10 ^3/uL Basophils # (Auto) 0 0-0.2 10 ^3/uL Nucleated Red Blood Cells 0.0 % Sodium Level 140 136-145 mmol/L Potassium Level 3.4 L 3.5-5.1 mmol/L Chloride Level 108 H 98-107 mmol/L Carbon Dioxide Level 20 20-31 mmol/L Anion Gap 12 5-15 Blood Urea Nitrogen 17 9-23 mg/dL Creatinine 0.91 0.700-1.30 mg/dL Glomerular Filtration Rate Calc 110 >90 mL/min BUN/Creatinine Ratio 18.7 10.0-20.0 Serum Glucose 111 H 74-106 mg/dL Calcium Level 9.8 8.7-10.4 mg/dL Current Medications Medications (Trade) Dose Ordered Sig/Troy Route Start Time Stop Time Status Last Admin Al Hydrox/Mg Hydrox/Simethicone (Maalox Plus) 30 ml ONCE ONCE PO 04/25/24 21:45 04/25/24 21:46 DC 04/25/24 22:02 Lidocaine HCl (Xylocaine 2% Viscous) 3 ml ONCE ONCE PO 04/25/24 21:45 04/25/24 21:46 DC 04/25/24 22:02 X-Ray, Labs, Meds, VS Comment All studies performed the ED were evaluated by me personally. Urinalysis was unremarkable for any UTI formation laboratories were unremarkable for any significant blood loss. Patient will be sent home with a prescription for hemorrhoidal suppositories and advised him to follow up with primary care provider for continued evaluation. Time of 1ST Reevaluation: 00:03 Reevaluation 1ST: Improved Consultation: PCP Patient Education/Counseling: Diagnosis, Treatment Family Education/Counseling: Diagnosis, Treatment, No Family Present Departure 1 Departure Time of Disposition: 00:03 Impression: Primary Impression: Hemorrhoids Disposition: HOME / SELF CARE / HOMELESS Condition: Stable Additional Instructions: Advised patient utilize medication as needed as well as follow up with primary care provider for discussions related to today's complaints. e-Prescriptions Phenylephrine-Shark Liver Oil- (Hemorrhoidal Suppositorie 0.25-3-85.5 %) 1 Sup Sup 1 SUP TX BID, #20 SUPP Prov: DEMETRIUS BACON PAC 04/26/24 Discharged With: Self Critical Care Note Critical Care Time?: No Stability Stability form required: No Heart Score Heart Score: Heart Score Response (Comments) Value History N/A 0 EKG N/A 0 Age N/A 0 Risk Factors N/A 0 Troponin N/A 0 Total 0 I personally scribed for DEMETRIUS BACON PAC ([email or web address]) on 04/25/24 at 22:01. Electronically submitted by Judson Arango ([email or web address]). DEMETRIUS BACON PAC Apr 25, 2024 22:01
[2024-04-25] MEDS: MAALOX PLUS or MAALOX 30 ML PO ONE (22:02)
[2024-04-25] MEDS: LIDOCAINE VISCOUS 2% 15ML UD PO ONE (22:02)
[2024-04-25 22:07] LABS: Basophils # (auto) 0 10 ^3/uL (0-0.2); Basophils % (auto) 0.3 % (0.0-2.0); Eosinophils # (auto) 0.1 10 ^3/uL (0-0.8); Eosinophils % (auto) 0.5 % (0.0-7.0); Hematocrit 42.7 % (41.0-53.0); Hemoglobin 14.4 g/dL (13.5-17.5); Lymphocytes % (auto) 17.1 % (10.0-50.0); Mean Corpuscular Hemoglobin 30.2 pg (28.0-32.0); Mean Corpuscular Hgb Conc. 33.8 g/dL (32.0-36.0); Mean Corpuscular Volume 89.3 fL (80.0-100.0); Monocytes % (auto) 8.3 % (0.0-12.0); Neutrophils # (auto) 8.8 10 ^3/uL (1.6-8.6); Neutrophils % (auto) 73.8 % (37.0-80.0); Platelet Count (auto) 230 10^3/uL (140-450); Red Blood Cells 4.78 10^6/uL (4.5-5.90); Red Cell Distribution Width 13.6 % (11.8-14.3); White Blood Cell 11.9 10^3/uL (4.4-10.8)
[2024-04-25 22:15] LABS: Sodium 140 mmol/L (136-145)
[2024-04-25 22:16] LABS: Anion Gap 12 (5-15); Calcium 9.8 mg/dL (8.7-10.4)
[2024-04-25 22:17] VITALS: PULSE 84; RESP 18; O2SAT 99
[2024-04-25 22:21] LABS: BUN/Creatinine Ratio 18.7 (10.0-20.0); Blood Urea Nitrogen 17 mg/dL (9-23)
[2024-04-25 22:47] LABS: Carbon Dioxide 20 mmol/L (20-31); Chloride 108 mmol/L (98-107); Glucose 111 mg/dL (74-106); Potassium 3.4 mmol/L (3.5-5.1)
[2024-04-25 23:08] LABS: Urine Bacteria None Seen /hpf (None Seen)
[2024-04-25 23:29] LABS: Urine Blood Negative /uL (Negative); Urine Clarity Clear (Clear); Urine Color Yellow (Yellow); Urine Mucus FEW (None Seen); Urine Protein, UAD TRACE (Negative); Urine Specific Gravity 1.029 (1.001-1.035); Urine Sperm PRESENT /hpf (None Seen); Urine Squamous Epithelial Cell None Seen /hpf (<5); Urine Urobilinogen Normal (Negative); Urine WBC 1 /HPF (0-3)
[2024-04-25 23:39] LABS: Cocaine Screen, Urine Neg (NEGATIVE)
[2024-04-25 23:40] LABS: Cannabinoid Screen, Urine Pos (NEGATIVE)
[2024-04-25 23:47] LABS: Amphetamine Screen, Urine Pos (NEGATIVE); Barbiturate Scree,Urine Neg (NEGATIVE); Benzodiazephine Screen, Urine Neg (NEGATIVE); Opiate Scree,Urine Neg (NEGATIVE); Phencyclidine Screen, Urine Neg (NEGATIVE)
[2024-04-26] MEDS ORDERED: PHENSUP38 PR (00:04)
[2024-04-26 00:43] VITALS: BP 129/86; PULSE 86; RESP 19; TEMP 98; O2SAT 96
== END 2024-04-26 00:44 | disposition home or self-care (01) ==
LOC: ER 21:06 → EDBD 21:06 → ER 04-26 00:44
DX: K64.9 Unspecified hemorrhoids (principal); J45.909 Unspecified asthma, uncomplicated; F17.210 Nicotine dependence, cigarettes, uncomplicated; F12.90 Cannabis use, unspecified, uncomplicated; F15.90 Other stimulant use, unspecified, uncomplicated; Z59.00 Homelessness unspecified; Z88.8 Allergy status to other drugs, medicaments and biological substances; Z79.899 Other long term (current) drug therapy
CPT/HCPCS: 36415; 80048; 80307; 81001; 85025

== ENCOUNTER 2024-05-28 21:21 | Emergency (ER) | payer MEDICAID ==
[~2024-05-28] VITALS: Ht 177.8 cm; Wt 78.2 kg
[~2024-05-28 21:21] MED LIST changes: +PHENSUP38 PR
[2024-05-29 00:40] VITALS: BP 128/84; PULSE 103; RESP 18; TEMP 97.9; O2SAT 98
[2024-05-29] MEDS ORDERED: IBUP-1456 PO (00:53)
[2024-05-29] MEDS ORDERED: CLIN1CAP70 PO (00:53)
--- NOTE | 2024-05-29 00:53 | ED.PDOC ---
Musculoskeletal HPI Comments 39 year old male presents to ER with complaints of right 2nd finger pain x1 week. Patient reports he has been experiencing pain/swelling/redness to right 2nd finger x1 week with associated yellow drainage to right 2nd finger x 1 day. Notes that he was seen and evaluated by a provider at onset of symptoms and was prescribed oral antibiotics that he states he never finished because they were "stolen" from him. He rates his current pain a 10/10 localized to right 2nd finger without radiation. Denies fever, body aches, chills, numbness/tingling or any further symptoms/complaints Chief Complaint: Upper Extremity Time Seen by MD: 22:15 Primary Care Provider: UNKNOWN Reviewed Notes: Nurses Notes, Medications, Allergies Allergies: Coded Allergies: Tramadol (Verified Adverse Reaction, Unknown, 08/27/20) PSYCHOSIS Home Meds Active Scripts Ibuprofen (Ibuprofen) 800 Mg Tab, 1 TAB PO TID PRN, #30 TAB 0 Refills Prov:MAKEDA VELÁSQUEZ 05/29/24 Clindamycin Hcl (Clindamycin Hcl) 300 Mg Cap, 300 MG PO QID for 7 Days, #28 CAP 0 Refills Prov:MAKEDA VELÁSQUEZ 05/29/24 Phenylephrine-Shark Liver Oil- (Hemorrhoidal Suppositorie 0.25-3-85.5 %) 1 Sup Sup, 1 SUP TX BID, #20 SUPP Prov:DEMETRIUS BACON 04/26/24 Oxycodone W/ Acetaminophen (Percocet 5/325MG) 1 Tab Tb, 1 TAB PO BID for 7 Days, #14 TAB Prov:KRISTOFER FLORES MD 10/05/21 Clindamycin HCl (Clindamycin Hydrochloride) 300 Mg Cap, 300 MG PO BID for 7 Days, #14 CAP Prov:KRISTOFER FLORES MD 10/05/21 Information Source: Patient Mode of Arrival: Ambulatory Last Tetanus: UTD Past Medical History PAST MEDICAL HISTORY: Asthma Surgical History: Denies all surgeries Family History Family History: Unknown Social History Smoker: Cigarettes, Less Than 1 Pack/Day Alcohol: Occasionally Drugs: Marijuana, Methamphetamine Lives In: Homeless Constitutional: denies: chills, diaphoresis, fatigue, fever, malaise, sweats, weakness, others EENTM: denies: blurred vision, double vision, ear bleeding, ear discharge, ear drainage, ear pain, ear ringing, eye pain, eye redness, hearing loss, mouth pain, mouth swelling, nasal discharge, nose bleeding, nose congestion, nose pain, photophobia, tearing, throat pain, throat swelling, voice changes, others Respiratory: denies: cough, hemoptysis, orthopnea, SOB at rest, shortness of breath, SOB with excertion, stridor, wheezing, others Cardiovascular: denies: chest pain, dizzy spells, diaphoresis, Dyspnea on exertion, edema, irregular heart beat, left arm pain, lightheadedness, palpitations, PND, syncope, others Gastrointestinal: denies: abdomen distended, abdominal pain, blood streaked bowels, constipated, diarrhea, dysphagia, difficulty swallowing, hematemesis, melena, nausea, poor appetite, poor fluid intake, rectal bleeding, rectal pain, vomiting, others Genitourinary: denies: burning, dysuria, flank pain, frequency, hematuria, incontinence, penile discharge, penile sore, pain, testicle pain, testicle swelling, urgency, others Neurological: denies: dizziness, fainting, headache, left sided numbness, left sided weakness, numbness, paresthesia, pre-existing deficit, right sided numbness, right sided weakness, seizure, speech problems, tingling, tremors, weakness, others Musculoskeletal: reports: others (As stated in HPI) Integumetry: reports: others (As stated in HPI) Allergic/Immunocompromised: denies: Difficulty Healing, Frequent Infections, Hives, Itching, others Hematologic/Lymphatic: denies: anemia, blood clots, easy bleeding, easy bruising, swollen glands, others Endocrine: denies: excessive hunger, excessive sweating, excessive thirst, excessive urination, flushing, intolerance to cold, intolerance to heat, unexplained weight gain, unexplained weight loss, others Psychiatric: denies: anxiety, bipolar disorder, depression, hopeless, panic disorder, schizophrenia, sleepless, suicidal, others Physical Exam General Appearance: No Apparent Distress HEENT: PERRL/EOMI Neck: Full Range of Motion, Non-Tender, Normal Respiratory: Chest Non-Tender, Lungs Clear, No Accessory Muscle Use, No Resp iratory Distress, Normal Breath Sounds Cardiovascular: No Murmur, No Gallop, Regular Rate/Rhythm Breast Exam: Deferred Gastrointestinal: NOT DONE Genitalia: Deferred Pelvic: Deferred Rectal: Deferred Extremities: Normal capillary refill Musculoskeletal : Extremity Location: Finger 2 (Moderate swelling/TTP/erythema noted to right 2nd finger. No percussion tenderness to right 2nd finger noted. No pain with passive extension to right 2nd finger apprecaited. No flexion posture noted to right 2nd finger. No drainage/red streaking/fluctuance noted. 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 Was a procedure done?: No Sedation Sedation?: No Differential Diagnosis EXT Differential Diagnosis: Fracture, Dislocation, Septic, Neurovascular injury, Other (FLEXOR TENOSYNOVITIS) X-Ray, Labs, Meds, VS Vital Signs Date Time Temp Pulse Resp B/P (MAP) Pulse Ox O2 Delivery O2 Flow Rate FiO2 05/29/24 00:40 97.9 103 18 128/84 (99) 98 97.9 05/29/24 00:40 103 18 98 Room Air 05/28/24 21:57 97.9 103 18 128/84 (99) 98 97.9 Lab Test 05/29/24 01:01 Range/Units White Blood Count 8.1 4.4-10.8 10^3/uL Red Blood Count 4.55 4.5-5.90 10^6/uL Hemoglobin 14.1 13.5-17.5 g/dL Hematocrit 41.2 41.0-53.0 % Mean Corpuscular Volume 90.7 80.0-100.0 fL Mean Corpuscular Hemoglobin 31.1 28.0-32.0 pg Mean Corpuscular Hemoglobin Concent 34.3 32.0-36.0 g/dL Red Cell Distribution Width 13.6 11.8-14.3 % Platelet Count 312 140-450 10^3/uL Mean Platelet Volume 7.3 6.9-10.8 fL Neutrophils (%) (Auto) 56.3 37.0-80.0 % Lymphocytes (%) (Auto) 33.1 10.0-50.0 % Monocytes (%) (Auto) 8.1 0.0-12.0 % Eosinophils (%) (Auto) 1.8 0.0-7.0 % Basophils (%) (Auto) 0.7 0.0-2.0 % Neutrophils # (Auto) 4.6 1.6-8.6 10 ^3/uL Lymphocytes # (Auto) 2.7 0.4-5.4 10 ^3/uL Monocytes # (Auto) 0.7 0-1.3 10 ^3/uL Eosinophils # (Auto) 0.1 0-0.8 10 ^3/uL Basophils # (Auto) 0.1 0-0.2 10 ^3/uL Nucleated Red Blood Cells 0.1 % Erythrocyte Sedimentation Rate 15 0-20 mm/hr Current Medications Medications (Trade) Dose Ordered Sig/Troy Route Start Time Stop Time Status Last Admin Ceftriaxone Sodium 50 ml @ 100 mls/hr ONCE ONCE IV 05/29/24 01:00 05/29/24 01:29 DC 05/29/24 01:10 Ketorolac Tromethamine (Toradol Injection) 30 mg ONCE ONCE IV 05/29/24 01:00 05/29/24 01:01 DC 05/29/24 01:09 Piperacillin Sod/ Tazobactam Sod 100 ml @ 100 mls/hr ONCE ONCE IV 05/29/24 01:15 05/29/24 01:44 DC 05/29/24 01:39 PATIENT: CHINMAY TINSLEYCCT: [id number]: [id number] : 1985 LOC: ER ROOM / BED: / AGE / SEX: 39 / M ADM STATUS: REG ER SERVICE [id number] ORDERING PHYSICIAN: MAKEDA VELÁSQUEZ PROCEDURE(s): RFIN2 - R 2ND FINGER XRAY REASON: right 2nd finger pain ORDER NUMBER(s): [id number], ACCESSION NUMBER(s): [id number] CLINICAL INDICATION: right 2nd finger pain TECHNIQUE: XY R 2ND FINGER XRAY Comparison: None FINDINGS / IMPRESSION: Evidence of considerable soft tissue swelling in 2nd digit. No osseous or joint abnormality identified with no fracture or dislocation. Joint spaces are normal. 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 and take them as prescribed Patient provided information to local PCPs and orthopedic hand specialists and advised to f/u in 1-2 days Patient verbalized understanding and agreeable with current plan of care Advised to return to ER immediately if symptoms worsen Images Reviewed?: Images reviewed and evaluated by me Time of 1ST Reevaluation: 00:24 Reevaluation 1ST: N/A Patient Education/Counseling: Diagnosis, Treatment, Prognosis, Need For Follow Up Family Education/Counseling: No Family Present Departure 1 Departure Time of Disposition: 00:52 Impression: Primary Impression: Cellulitis of finger of right hand Disposition: 01 HOME / SELF CARE / HOMELESS Condition: Stable e-Prescriptions Ibuprofen (Ibuprofen) 800 Mg Tab 1 TAB PO TID PRN, #30 TAB 0 Refills Prov: MAKEDA VELÁSQUEZ 05/29/24 Clindamycin Hcl (Clindamycin Hcl) 300 Mg Cap 300 MG PO QID for 7 Days, #28 CAP 0 Refills Prov: MAKEDA VELÁSQUEZ 05/29/24 Discharged With: Self Critical Care Note Critical Care Time?: No Stability Stability form required: No Heart Score Heart Score: Heart Score Response (Comments) Value History N/A 0 EKG N/A 0 Age N/A 0 Risk Factors N/A 0 Troponin N/A 0 Total 0 MAKEDA VELÁSQUEZ May 29, 2024 00:53
--- NOTE | 2024-05-29 00:53 | DVH ---
CLINICAL INDICATION: right 2nd finger pain TECHNIQUE: XY R 2ND FINGER XRAY Comparison: None FINDINGS / IMPRESSION: Evidence of considerable soft tissue swelling in 2nd digit. No osseous or joint abnormality identif ied with no fracture or dislocation. Joint spaces are normal.
[2024-05-29] MEDS ORDERED: CLINDAMYCIN 900MG IV 50 ML IV ONE (01:00)
[2024-05-29] MEDS: KETOROLAC TROMETH 30 MG/ML 1ML VIAL IV ONE (01:09)
[2024-05-29] MEDS: cefTRIAXone 1GM/50ML D5W 50 ML IV ONE (01:10)
[2024-05-29 01:19] LABS: Basophils # (auto) 0.1 10 ^3/uL (0-0.2); Basophils % (auto) 0.7 % (0.0-2.0); Eosinophils # (auto) 0.1 10 ^3/uL (0-0.8); Eosinophils % (auto) 1.8 % (0.0-7.0); Hematocrit 41.2 % (41.0-53.0); Hemoglobin 14.1 g/dL (13.5-17.5); Lymphocytes # (auto) 2.7 10 ^3/uL (0.4-5.4); Lymphocytes % (auto) 33.1 % (10.0-50.0); Mean Corpuscular Hemoglobin 31.1 pg (28.0-32.0); Mean Corpuscular Hgb Conc. 34.3 g/dL (32.0-36.0); Mean Corpuscular Volume 90.7 fL (80.0-100.0); Monocytes # (auto) 0.7 10 ^3/uL (0-1.3); Monocytes % (auto) 8.1 % (0.0-12.0); Neutrophils # (auto) 4.6 10 ^3/uL (1.6-8.6); Neutrophils % (auto) 56.3 % (37.0-80.0); Nucleated Red Blood Cells % 0.1 %; Platelet Count (auto) 312 10^3/uL (140-450); Red Blood Cells 4.55 10^6/uL (4.5-5.90); Red Cell Distribution Width 13.6 % (11.8-14.3); White Blood Cell 8.1 10^3/uL (4.4-10.8)
[2024-05-29] MEDS: PIPERACILLIN-TAZOB 3.375GM 100 ML IV ONE (01:39)
[2024-05-29 01:51] LABS: Erythrocyte Sedimentation Rate 15 mm/hr (0-20)
== END 2024-05-29 01:44 | disposition home or self-care (01) ==
LOC: ER 21:21
DX: L03.011 Cellulitis of right finger (principal); J45.909 Unspecified asthma, uncomplicated; F17.210 Nicotine dependence, cigarettes, uncomplicated; F12.10 Cannabis abuse, uncomplicated; F15.10 Other stimulant abuse, uncomplicated; Z79.899 Other long term (current) drug therapy; Z88.8 Allergy status to other drugs, medicaments and biological substances; Z59.00 Homelessness unspecified; Z88.5 Allergy status to narcotic agent
CPT/HCPCS: 36415; 73140; 85025; 85652; 96365; 96368; 96375; 99284; J0696; J1885; J2543

== ENCOUNTER 2024-06-04 23:07 | Emergency (ER) | payer MEDICAID ==
[~2024-06-04] VITALS: Ht 177.8 cm; Wt 78.0 kg
[~2024-06-04 23:07] MED LIST changes: +CLIN1CAP70 PO; +IBUP-1456 PO
[2024-06-05 02:23] VITALS: BP 123/81; PULSE 81; RESP 16; TEMP 98.1; O2SAT 98
--- NOTE | 2024-06-05 02:54 | ED.PDOC ---
History of Present Illness(SKN HPI Comments Pt arrived in ER due to animal bite at 1730. VSS. Pt states it was a pit bull. Pt has bilateral thigh bites no active bleeding. Skin slightly broken on left thigh. Pt able to ambulate. TDAP received Last week Chief Complaint: Animal Bite Time Seen by MD: 23:11 Primary Care Provider: UNKNOWN History of Present Illness: Nurses Notes, Medications, Allergies Allergies: Coded Allergies: Tramadol (Verified Adverse Reaction, Unknown, 08/27/20) PSYCHOSIS Home Meds Active Scripts Ibuprofen (Ibuprofen) 800 Mg Tab, 1 TAB PO TID PRN for 5 Days, #15 TAB Prov:LB MCCAIN SECURITY EXPERT 06/05/24 Doxycycline Hyclate (Doxycycline Hyclate) 100 Mg Cap, 100 MG PO BID for 10 Days, #20 CAP Prov:LB MCCAIN SECURITY EXPERT 06/05/24 Ibuprofen (Ibuprofen) 800 Mg Tab, 1 TAB PO TID PRN, #30 TAB 0 Refills Prov:MAKEDA VELÁSQUEZ 05/29/24 Clindamycin Hcl (Clindamycin Hcl) 300 Mg Cap, 300 MG PO QID for 7 Days, #28 CAP 0 Refills Prov:MAKEDA VELÁSQUEZ 05/29/24 Phenylephrine-Shark Liver Oil- (Hemorrhoidal Suppositorie 0.25-3-85.5 %) 1 Sup Sup, 1 SUP TN BID, #20 SUPP Prov:DEMETRIUS BACON PAC 04/26/24 Oxycodone W/ Acetaminophen (Percocet 5/325MG) 1 Tab Tb, 1 TAB PO BID for 7 Days, #14 TAB Prov:KRISTOFER FLORES MD 10/05/21 Clindamycin HCl (Clindamycin Hydrochloride) 300 Mg Cap, 300 MG PO BID for 7 Days, #14 CAP Prov:KRISTOFER FLORES MD 10/05/21 Information Source: Patient Mode of Arrival: Ambulatory Past Medical History PAST MEDICAL HISTORY: Asthma Surgical History: Denies all surgeries Family History Family History: Unknown Social History Smoker: Cigarettes, Less Than 1 Pack/Day Alcohol: Occasionally Drugs: Marijuana, Methamphetamine Lives In: Homeless Constitutional: denies: chills, diaphoresis, fatigue, fever, malaise, sweats, weakness, others EENTM: denies: blurred vision, double vision, ear bleeding, ear discharge, ear drainage, ear pain, ear ringing, eye pain, eye redness, hearing loss, mouth pain, mouth swelling, nasal discharge, nose bleeding, nose congestion, nose pain, photophobia, tearing, throat pain, throat swelling, voice changes, others Respiratory: denies: cough, hemoptysis, orthopnea, SOB at rest, shortness of breath, SOB with excertion, stridor, wheezing, others Cardiovascular: denies: chest pain, dizzy spells, diaphoresis, Dyspnea on exertion, edema, irregular heart beat, left arm pain, lightheadedness, palpitations, PND, syncope, others Gastrointestinal: denies: abdomen distended, abdominal pain, blood streaked bowels, constipated, diarrhea, dysphagia, difficulty swallowing, hematemesis, melena, nausea, poor appetite, poor fluid intake, rectal bleeding, rectal pain, vomiting, others Genitourinary: denies: burning, dysuria, flank pain, frequency, hematuria, incontinence, penile discharge, penile sore, pain, testicle pain, testicle swelling, urgency, others Neurological: denies: dizziness, fainting, headache, left sided numbness, left sided weakness, numbness, paresthesia, pre-existing deficit, right sided numbness, right sided weakness, seizure, speech problems, tingling, tremors, weakness, others Musculoskeletal: denies: back pain, gout, joint pain, joint swelling, muscle pa in, muscle stiffness, neck pain, others Integumetry: reports: rash, wounds (SUPERFICIAL ABRASIONS BILATERAL LATERAL THIGH. RIGHT INDEX FINGER MIDDLE PHALANX NOTED OPEN WOUND NO NOTED DRAINAGE TRACE ERYTHEMA STRENGTH SENSORY MOTION INTACT CAP REFILL LESS THAN 3 SECONDS); denies: bruises, change in color, change in hair/nails, dryness, laceration, lesions, lumps, others Allergic/Immunocompromised: denies: Difficulty Healing, Frequent Infections, Hives, Itching, others Hematologic/Lymphatic: denies: anemia, blood clots, easy bleeding, easy bruising, swollen glands, others Endocrine: denies: excessive hunger, excessive sweating, excessive thirst, excessive urination, flushing, intolerance to cold, intolerance to heat, unexplained weight gain, unexplained weight loss, others Psychiatric: denies: anxiety, bipolar disorder, depression, hopeless, panic disorder, schizophrenia, sleepless, suicidal, others Physical Exam General Appearance: No Apparent Distress, Normal HEENT: Pharynx Normal Neck: Full Range of Motion, Non-Tender Respiratory: Lungs Clear, No Respiratory Distress, Normal Breath Sounds Cardiovascular: No Murmur, Normal Peripheral Pulses, Regular Rate/Rhythm Breast Exam: Deferred Gastrointestinal: No Organomegaly, Non Tender, No Pulsatile Mass, Normal Bowel Sounds, Soft Genitalia: Deferred Pelvic: Deferred Rectal: Deferred Extremities: Normal capillary refill, Normal inspection, Normal range of motion, Non-tender, No pedal edema Musculoskeletal : Apperance: Normal Neurologic: Alert, concrete block mason II-XII nml as Tested, No Motor Deficits, Normal Affect, Normal Mood, No Sensory Deficits Cerebellar Function: Normal Reflexes: Normal Skin: Dry, Normal Color, Warm, Wounds (SUPERFICIAL ABRASIONS BILATERAL LATERAL THIGH. RIGHT INDEX FINGER MIDDLE PHALANX NOTED OPEN WOUND NO NOTED DRAINAGE TRACE ERYTHEMA STRENGTH SENSORY MOTION INTACT CAP REFILL LESS THAN 3 SECONDS) Lymphatic: No Adenopathy Was a procedure done? Was a procedure done?: No Differential Diagnosis (INTG) Differential Diagnosis: Cellulitis, Fracture, Hematoma, Laceration, Puncture Wound X-Ray, Labs, Meds, VS Vital Signs Date Time Temp Pulse Resp B/P (MAP) Pulse Ox O2 Delivery O2 Flow Rate FiO2 06/05/24 02:23 98.1 81 16 123/81 (95) 98 98.1 06/04/24 23:30 98.1 93 13 127/92 (104) 97 98.1 Current Medications Medications (Trade) Dose Ordered Sig/Troy Route Start Time Stop Time Status Last Admin Ceftriaxone Sodium (Rocephin) 1,000 mg ONCE ONCE IM 06/05/24 03:00 06/05/24 03:01 DC 06/05/24 03:04 Acetaminophen/ Hydrocodone Bitart ([place] 5/325MG Tab) 1 tab ONCE ONCE PO 06/05/24 03:00 06/05/24 03:01 DC 06/05/24 03:04 X-Ray, Labs, Meds, VS Comment PATIENT GIVEN ROCEPHIN 1 G IM. SCRIPT DOXYCYCLINE TWICE DAILY TIMES 10 DAYS. FINGER ON WOUND DRESSED PATIENT GIVEN EXTRA BANDAGES ADVISED TO KEEP WOUND COVERED DRESSED CLEAN AND DRY. MEDICATIONS PRESCRIBED SIDE EFFECTS DISCUSSED. FOLLOW UP WITH YOUR PCP 1-2 DAYS FOR WOUND RE-EVALUATION OR URGENT CARE OR BACK HERE IN THE ER. ER RETURN PRECAUTIONS GIVEN PATIENT INDICATES UNDERSTANDING AND AGREES WITH DISCHARGE PLAN OF CARE. Time of 1ST Reevaluation: 02:54 Reevaluation 1ST: Improved Patient Education/Counseling: Diagnosis, Treatment, Prognosis, Need For Follow Up Family Education/Counseling: No Family Present Departure 1 Departure Time of Disposition: 02:53 Impression: Primary Impression: Superficial wound due to dog bite Additional Impression: Open wound of finger, infected Qualified Codes: S61.209A - Unspecified open wound of unspecified finger without damage to nail, initial encounter; L08.9 - Local infection of the skin and subcutaneous tissue, unspecified Disposition: 01 HOME / SELF CARE / HOMELESS Condition: Stable e-Prescriptions Ibuprofen (Ibuprofen) 800 Mg Tab 1 TAB PO TID PRN for 5 Days, #15 TAB Prov: LB MCCAIN 06/05/24 Doxycycline Hyclate (Doxycycline Hyclate) 100 Mg Cap 100 MG PO BID for 10 Days, #20 CAP Prov: LB MCCAIN 06/05/24 Discharged With: Self Critical Care Note Critical Care Time?: No Stability Stability form required: No LB MCCAIN Jun 05, 2024 02:54
[2024-06-05] MEDS ORDERED: DOXY100C4 PO (02:57)
[2024-06-05] MEDS ORDERED: IBUP-1456 PO (02:57)
[2024-06-05] MEDS: cefTRIAXone SOD 1,000 MG VL IM ONE (03:04)
[2024-06-05] MEDS: HYDROcodone-ACET 5/325MG TAB PO ONE (03:04)
== END 2024-06-05 03:15 | disposition home or self-care (01) ==
LOC: ER 23:07
DX: S70.311A Abrasion, right thigh, initial encounter (principal); S70.312A Abrasion, left thigh, initial encounter; J45.909 Unspecified asthma, uncomplicated; F17.210 Nicotine dependence, cigarettes, uncomplicated; F12.90 Cannabis use, unspecified, uncomplicated; F15.90 Other stimulant use, unspecified, uncomplicated; Z79.899 Other long term (current) drug therapy; Z88.5 Allergy status to narcotic agent; Z59.00 Homelessness unspecified; W54.0XXA Bitten by dog, initial encounter; Y93.89 Activity, other specified; Y92.89 Other specified places as the place of occurrence of the external cause; Y99.8 Other external cause status
CPT/HCPCS: 96372; 99283; J0696

== ENCOUNTER 2024-07-29 09:36 | Emergency (ER) | payer MEDICAID ==
[~2024-07-29] VITALS: Ht 177.8 cm; Wt 80.9 kg
--- NOTE | 2024-07-29 11:37 | ED.PDOC ---
History of Present Illness(SKN HPI Comments 39 year old homeless man presents to the ED with a chief complaint of LT leg wound x1 month. Wound is located behind the left knee crease. Patient states he was pulling sofa apart when jasen from wood scrapped back of LT knee about 1 month ago. Patient noticed wound is not healing, has drainage. He has tried to clean wound with peroxide, wound has not improved. He has moderate pain, worsens with walking, rates pain 7/10. Last TDAP 2 months ago The patient denies any history of illicit drug use. The patient denies any immunosuppressed comorbidities such as diabetes hepatitis HIV Chief Complaint: Wound Check Time Seen by MD: 11:28 Primary Care Provider: UNKNOWN History of Present Illness: Nurses Notes, Medications, Allergies Allergies: Coded Allergies: Tramadol (Verified Adverse Reaction, Unknown, 08/27/20) PSYCHOSIS Home Meds Active Scripts Ibuprofen (Ibuprofen) 600 Mg Tab, 1 TAB PO TID for 10 Days, #30 TAB 0 Refills Prov:SHARYN JOHNSON PERINATAL TECHNICIAN 07/29/24 Sulfamethoxazole W/Trimethopri (Bactrim Ds Tablet) 1 Tab Tb, 1 TAB PO BID for 7 Days, #14 TAB 0 Refills Prov:SHARYN JOHNSON PERINATAL TECHNICIAN 07/29/24 Cephalexin Monohydrate (Cephalexin) 500 Mg Cap, 1 CAP PO QID for 7 Days, #28 CAP 0 Refills Prov:SHARYN JOHNSON PERINATAL TECHNICIAN 07/29/24 Ibuprofen (Ibuprofen) 800 Mg Tab, 1 TAB PO TID PRN, #30 TAB 0 Refills Prov:MAKEDA VELÁSQUEZ 05/29/24 Clindamycin Hcl (Clindamycin Hcl) 300 Mg Cap, 300 MG PO QID for 7 Days, #28 CAP 0 Refills Prov:MAKEDA VELÁSQUEZ 05/29/24 Phenylephrine-Shark Liver Oil- (Hemorrhoidal Suppositorie 0.25-3-85.5 %) 1 Sup Sup, 1 SUP [place] BID, #20 SUPP Prov:DEMETRIUS BACON PAC 04/26/24 Oxycodone W/ Acetaminophen (Percocet 5/325MG) 1 Tab Tb, 1 TAB PO BID for 7 Days, #14 TAB Prov:KRISTOFER FLORES MD 10/05/21 Clindamycin HCl (Clindamycin Hydrochloride) 300 Mg Cap, 300 MG PO BID for 7 Days, #14 CAP Prov:KRISTOFER FLORES MD 10/05/21 Information Source: Patient Mode of Arrival: Ambulatory Severity: Moderate Timing: Months Duration: Since onset Prehospital treatment: None Location: Other (back of LT Knee) Occurence: Outdoors Object: Other (jasen) Condition of Object: None Retained Foreign Body: No Immunization Status of Animal: NA Associated Signs and Symptoms: None Past Medical History PAST MEDICAL HISTORY: Asthma Surgical History: Denies all surgeries Family History Family History: Reviewed,noncontributory to illness, Unknown Social History Smoker: Cigarettes, Less Than 1 Pack/Day Alcohol: Occasionally Drugs: Marijuana, Methamphetamine Lives In: Homeless All Other Systems: Reviewed and Negative (as per HPI) Physical Exam General Appearance: No Apparent Distress, Normal HEENT: Normal ENT Inspection, Pharynx Normal, TMs Normal Neck: Full Range of Motion, Non-Tender, Normal, Normal Inspection Respiratory: Chest Non-Tender, Lungs Clear, No Accessory Muscle Use, No Respiratory Distress, Normal Breath Sounds Cardiovascular: No Edema, No JVD, No Murmur, No Gallop, Normal Peripheral Pulses, Regular Rate/Rhythm Breast Exam: Deferred Gastrointestinal: No Organomegaly, Non Tender, No Pulsatile Mass, Normal Bowel Sounds, Soft Genitalia: Deferred Pelvic: Deferred Rectal: Deferred Extremities: No calf tenderness, Normal capillary refill, Normal inspection, Normal range of motion, Non-tender, No pedal edema Musculoskeletal : Location: Left Extremity Location: Leg (See image for detailed note) Apperance: Normal Neurologic: Alert, manager enterprise II-XII nml as Tested, No Motor Deficits, Normal Affect, Normal Mood, No Sensory Deficits Cerebellar Function: Normal Reflexes: Normal Skin: Dry, Normal Color, Warm Lymphatic: No Adenopathy Was a procedure done? Was a procedure done?: No Images 1 - 6 cm linear erythematous wound. visible yellow discharge. TTP. No crepitus to palpation. No visible FB. No other open wound. Full passive and active range of motion of the patella. Able to ambulate without assistive devices. Distal sensation intact Differential Diagnosis (INTG) Differential Diagnosis: Abrasion, Cellulitis, Laceration, Puncture Wound X-Ray, Labs, Meds, VS Vital Signs Date Time Temp Pulse Resp B/P (MAP) Pulse Ox O2 Delivery O2 Flow Rate FiO2 07/29/24 12:44 98.1 85 15 118/68 (85) 100 98.1 07/29/24 10:03 98.4 94 16 120/80 (93) 97 98.4 Lab Test 07/29/24 11:43 Range/Units White Blood Count 6.4 4.4-10.8 10^3/uL Red Blood Count 5.03 4.5-5.90 10^6/uL Hemoglobin 15.3 13.5-17.5 g/dL Hematocrit 45.0 41.0-53.0 % Mean Corpuscular Volume 89.5 80.0-100.0 fL Mean Corpuscular Hemoglobin 30.4 28.0-32.0 pg Mean Corpuscular Hemoglobin Concent 34.0 32.0-36.0 g/dL Red Cell Distribution Width 13.1 11.8-14.3 % Platelet Count 292 140-450 10^3/uL Mean Platelet Volume 7.2 6.9-10.8 fL Neutrophils (%) (Auto) 51.1 37.0-80.0 % Lymphocytes (%) (Auto) 38.7 10.0-50.0 % Monocytes (%) (Auto) 7.5 0.0-12.0 % Eosinophils (%) (Auto) 1.9 0.0-7.0 % Basophils (%) (Auto) 0.8 0.0-2.0 % Neutrophils # (Auto) 3.3 1.6-8.6 10 ^3/uL Lymphocytes # (Auto) 2.5 0.4-5.4 10 ^3/uL Monocytes # (Auto) 0.5 0-1.3 10 ^3/uL Eosinophils # (Auto) 0.1 0-0.8 10 ^3/uL Basophils # (Auto) 0 0-0.2 10 ^3/uL Nucleated Red Blood Cells 0.1 % Sodium Level 139 136-145 mmol/L Potassium Level 3.7 3.5-5.1 mmol/L Chloride Level 103 98-107 mmol/L Carbon Dioxide Level 30 20-31 mmol/L Anion Gap 6 5-15 Blood Urea Nitrogen 17 9-23 mg/dL Creatinine 0.76 0.700-1.30 mg/dL Glomerular Filtration Rate Calc 117 >90 mL/min BUN/Creatinine Ratio 22.4 H 10.0-20.0 Serum Glucose 87 74-106 mg/dL Calcium Level 9.8 8.7-10.4 mg/dL Current Medications Medications (Trade) Dose Ordered Sig/Troy Route Start Time Stop Time Status Last Admin Ceftriaxone Sodium (Rocephin) 1,000 mg ONCE ONCE IM 07/29/24 11:45 07/29/24 11:46 DC 07/29/24 11:41 Ketorolac Tromethamine (Toradol Injection) 30 mg ONCE ONCE IM 07/29/24 11:45 07/29/24 11:46 DC 07/29/24 11:42 X-Ray, Labs, Meds, VS Comment 39 year old homeless man presents to the ED with a chief complaint of LT knee wound onset 1 month. Patient arrives alert and oriented, ABC's intact, afebrile, vital signs stable, saturating well in room air History and findings consistent with cellulitis. The area of infection does not appear to have any loculations/induration based on physical exam. The patient did not require an incision and drainage. Patient well appearing. VSS. Given History, Exam, and Workup I have low suspicion for Necrotizing Fasciitis, Abscess, Osteomyelitis, DVT or other emergent problem as a cause for this presentation. Low risk for treatment failure based on history. In the emergency department the patient received 1 g of Rocephin IM Labs were ordered and reviewed Imaging was ordered and reviewed by me Also prescribed p.o. antibiotics for presentation of symptoms Complete course of antibiotic therapy even if symptoms improve or resolve. There should be no leftover antibiotics as this can lead to antibiotic resistant bacteria and even worse infection. Patient verbalized understanding. Potential side effects discussed with patient including abdominal pain, nausea, diarrhea. Recommended probiotics and return precautions given The patient was advised to return 24-48 hours for wound check. Sooner if symptoms worsen. Additional MDM Review of External, Non-ED records: External records reviewed. Discussion with independent historian (EMS, family) history obtained from the patient at bedside Chronic conditions affecting care: asthma Social determinants of health affecting care: homeless Consideration of admission (observation or admission): I considered escalation of care to admission for this patient, however given the reassuring workup, the patient is safe for outpatient management. Patient is stable for discharge at this time. External notes reviewed. Test results and diagnostic imaging interpreted. All diagnostic findings, discharge care, education and instructions provided Follow-up with PCP Patient verbalized understanding and agreed to treatment plan Vital signs stable, afebrile, no acute distress noted Patient ambulatory with strong steady gait Advised to return precautions for any new or worsening symptoms, return to ER immediately for re-evaluation Patient is aware that the purpose of this visit was for an acute medical emergency requiring emergent stabilization. Chronic conditions, including malignancies have not been ruled out. Patient is instructed to follow up with PCP as directed and discharge instructions for continued care and workup. If unable to arrange follow-up, patient is to return to the emergency department for reassessment. Patient (parent or legal guardian if applicable) was given verbal and written discharge instructions and acknowledges understanding. Time of 1ST Reevaluation: 11:58 Reevaluation 1ST: Improved Patient Education/Counseling: Diagnosis, Treatment, Prognosis Family Education/Counseling: No Family Present Departure 1 Departure Time of Disposition: 12:47 Impression: Primary Impression: Cellulitis of left leg Disposition: HOME / SELF CARE / HOMELESS Condition: Fair Additional Instructions: Discharge Note: Continue on your medications. Drink plenty of fluids. Follow up with your primary Dr. Take your prescriptions as ordered. If your condition becomes worse call and follow up with your primary Dr. for instructions or return to the ER if needed. Keep wound clean and dry. Thank you for visiting [facility]. e-Prescriptions Ibuprofen (Ibuprofen) 600 Mg Tab 1 TAB PO TID for 10 Days, #30 TAB 0 Refills Prov: SHARYN JOHNSON NP 07/29/24 Sulfamethoxazole W/Trimethopri (Bactrim Ds Tablet) 1 Tab Tb 1 TAB PO BID for 7 Days, #14 TAB 0 Refills Prov: SHARYN JOHNSON NP 07/29/24 Cephalexin Monohydrate (Cephalexin) 500 Mg Cap 1 CAP PO QID for 7 Days, #28 CAP 0 Refills Prov: SHARYN JOHNSON NP 07/29/24 Critical Care Note Critical Care Time?: No Stability Stability form required: No Heart Score Heart Score: Heart Score Response (Comments) Value History N/A 0 EKG N/A 0 Age N/A 0 Risk Factors N/A 0 Troponin N/A 0 Total 0 I personally scribed for SHARYN JOHNSON NP ([email or web address]) on 07/29/24 at 11:50. Electronically submitted by Annette Irwin ([email or web address]). I personally scribed for SHARYN JOHNSON NP ([email or web address]) on 07/29/24 at 12:06. Electronically submitted by Annette Irwin ([email or web address]). SHARYN JOHNSON NP July 29, 2024 11:37
[2024-07-29] MEDS: cefTRIAXone SOD 1,000 MG VL IM ONE (11:41)
[2024-07-29] MEDS: KETOROLAC TROMETH 30 MG/ML 1ML VIAL IM ONE (11:42)
--- NOTE | 2024-07-29 12:17 | DVH ---
EXAM: XY L KNEE 3V XRAY HISTORY: cellulitis. r/o FB COMPARISON: None TECHNIQUE: 3 views of the left knee were performed. FINDINGS: No acute fracture is identified about the left knee. No significant joint space narrowing. No evide nce of significant joint effusion. Prepatellar soft tissue swelling. No radiopaque foreign body. IMPRESSION: 1. No fracture or dislocation. 2. Prepatellar soft tissue swelling. No radiopaque foreign body.
[2024-07-29 12:26] LABS: Basophils # (auto) 0 10 ^3/uL (0-0.2); Basophils % (auto) 0.8 % (0.0-2.0); Eosinophils # (auto) 0.1 10 ^3/uL (0-0.8); Eosinophils % (auto) 1.9 % (0.0-7.0); Hemoglobin 15.3 g/dL (13.5-17.5); Lymphocytes # (auto) 2.5 10 ^3/uL (0.4-5.4); Lymphocytes % (auto) 38.7 % (10.0-50.0); Mean Corpuscular Hemoglobin 30.4 pg (28.0-32.0); Mean Corpuscular Volume 89.5 fL (80.0-100.0); Monocytes # (auto) 0.5 10 ^3/uL (0-1.3); Monocytes % (auto) 7.5 % (0.0-12.0); Neutrophils # (auto) 3.3 10 ^3/uL (1.6-8.6); Neutrophils % (auto) 51.1 % (37.0-80.0); Nucleated Red Blood Cells % 0.1 %; Platelet Count (auto) 292 10^3/uL (140-450); Red Blood Cells 5.03 10^6/uL (4.5-5.90); Red Cell Distribution Width 13.1 % (11.8-14.3); White Blood Cell 6.4 10^3/uL (4.4-10.8)
[2024-07-29 12:34] LABS: Chloride 103 mmol/L (98-107); Potassium 3.7 mmol/L (3.5-5.1); Sodium 139 mmol/L (136-145)
[2024-07-29 12:35] LABS: Calcium 9.8 mg/dL (8.7-10.4)
[2024-07-29 12:36] LABS: Anion Gap 6 (5-15); Carbon Dioxide 30 mmol/L (20-31)
[2024-07-29 12:40] LABS: BUN/Creatinine Ratio 22.4 (10.0-20.0); Blood Urea Nitrogen 17 mg/dL (9-23); Glucose 87 mg/dL (74-106)
[2024-07-29 12:44] VITALS: BP 118/68; PULSE 85; RESP 15; TEMP 98.1; O2SAT 100
[2024-07-29] MEDS ORDERED: IBUP-1454 PO (12:49)
[2024-07-29] MEDS ORDERED: BACDST PO (12:49)
[2024-07-29] MEDS ORDERED: CEPH500C PO (12:49)
== END 2024-07-29 13:01 | disposition home or self-care (01) ==
LOC: ER 09:36
DX: L03.116 Cellulitis of left lower limb (principal); J45.909 Unspecified asthma, uncomplicated; F19.90 Other psychoactive substance use, unspecified, uncomplicated; F17.210 Nicotine dependence, cigarettes, uncomplicated; F10.90 Alcohol use, unspecified, uncomplicated; Y90.9 Presence of alcohol in blood, level not specified; Z88.5 Allergy status to narcotic agent; Z79.1 Long term (current) use of non-steroidal anti-inflammatories (NSAID); Z59.00 Homelessness unspecified; Z79.899 Other long term (current) drug therapy
CPT/HCPCS: 36415; 73562; 80048; 85025; 96372; 99284; J0696; J1885